=== PATIENT | male | born 1955 | race Caucasian/White ===

== ENCOUNTER 2020-04-24 08:19 | Outpatient (CLI) | payer MEDICARE, OTHER ==
[~2020-04-24] VITALS: Ht 182.9 cm; Wt 83.5 kg
[2020-04-24] VITALS (15 sets, daily range): BP systolic 95–113; BP diastolic 59–68
[2020-04-24 08:36] LABS: BASO # 0.1 x10^3/uL (0.0-0.2); BASO % 1 % (0-3); EOS # 0.1 x10^3/uL (0.0-0.7); EOS % 1 % (0-3); HEMATOCRIT 38.5 % (39.0-53.0); HEMOGLOBIN 13.2 g/dL (13.0-17.5); LYMPH # 0.7 x10^3/uL (1.0-4.8); LYMPH % 6 % (24-48); MEAN CORPUSCULAR HEMOGLOBIN 30 pg (25-35); MEAN CORPUSCULAR HGB CONC 34 g/dL (31-37); MEAN CORPUSCULAR VOLUME 87 fL (79-100); MONO # 0.7 x10^3/uL (0.0-1.1); MONO % 6 % (0-9); NEUT # 9.8 x10^3/uL (1.8-7.7); NEUT % 86 % (31-73); PLATELET COUNT 204 x10^3/uL (140-400); RED BLOOD COUNT 4.42 x10^6/uL (4.30-5.70); RED CELL DISTRIBUTION WIDTH 14.1 % (11.5-14.5); WHITE BLOOD COUNT 11.4 x10^3/uL (4.0-11.0)
[2020-04-24] MEDS ORDERED: ATEN25TA PO (08:41)
[2020-04-24] MEDS ORDERED: BUDE10.22 IH (08:41)
[2020-04-24] MEDS ORDERED: ASPI-630 PO (08:41)
[2020-04-24] MEDS ORDERED: SERT100T PO (08:41)
[2020-04-24] MEDS ORDERED: ATOR40TA PO (08:41)
[2020-04-24] MEDS ORDERED: TIOT18CA IH (08:41)
[2020-04-24] MEDS ORDERED: METF100010 PO (08:41)
[2020-04-24] MEDS ORDERED: TRIA1CAP3 PO (08:41)
[2020-04-24] MEDS ORDERED: ALBU2.5V14 NEB (08:41)
[2020-04-24] MEDS ORDERED: LEVO112T49 PO (08:41)
[2020-04-24] MEDS ORDERED: OMEP20CA16 PO (08:41)
[2020-04-24 08:49] LABS: PROTHROMBIN TIME PATIENT 13.4 SEC (11.7-14.0)
[2020-04-24 08:51] LABS: CALCIUM 8.9 mg/dL (8.5-10.1); CREATININE 1.1 mg/dL (0.7-1.3); POTASSIUM 4.7 mmol/L (3.5-5.1)
[2020-04-24] MEDS ORDERED: LIDOCAINE WITH 8.4% SOD BICARB 3 ML DISP.SYRIN. ONE (09:22)
[2020-04-24] MEDS ORDERED: fentaNYL PF VIAL 100 MCG/2 ML VIAL ONE (09:24)
[2020-04-24] MEDS ORDERED: MIDAZOLAM HCL/PF 2 MG/2 ML VIAL. ONE (09:24)
[2020-04-24] MEDS ORDERED: fentaNYL PF VIAL 100 MCG/2 ML VIAL IV ONE (09:30)
[2020-04-24] MEDS ORDERED: MIDAZOLAM HCL/PF 2 MG/2 ML VIAL. IV ONE (09:30)
[2020-04-24] MEDS ORDERED: LIDOCAINE WITH 8.4% SOD BICARB 3 ML DISP.SYRIN. IJ ONE (09:30)
--- NOTE | 2020-04-24 10:18 | PDOC ---
MODERATE SEDATION ASSESSMENT RISKS/ALTERNATIVES Risks/Alternatives Risks and alternatives of this type of sedation and procedure discussed with: RISK/ALTERNATIVES: Patient H & P ON CHART H & P H & P on chart and reviewed for co-morbid conditions and appropriate labs. H&P ON CHART: Yes STATUS PREG STATUS ASSESSED: Yes MEDS/ALLERGIES REVIEWED Meds/Allergies Reviewed Medications and Allergies including time and route of recently administered narcotics and sedatives. MEDS/ALLERGIES REVIEWED: Yes ASA RATING ASA RATING: II AIRWAY ASSESSMENT Airway Assessment Airway patency, oral function limitations, presence of caps, crowns, dentures, partials, and ability to extend neck assessed. AIRWAY ASSESSMENT: Yes MALLAMPATI SCORE MALLAMPATI SCORE: II PRE-SEDATION ASSESSMENT PRE-SEDATION ASSESSMENT: Yes ANISA CHRISTOPHER MD Apr 24, 2020 10:18
--- NOTE | 2020-04-24 10:20 | PDOC ---
BRIEF OPERATIVE NOTE Pre-Op Diagnosis left lung nodule Post-Op Diagnosis same Procedure Performed CT lung biopsy Surgeon Philippe Anesthesia Type: Conscious Sedation Specimens Obtained 6 x 20g cores Findings CT left lung biopsy Complications No immediate ANISA CHRISTOPHER MD Apr 24, 2020 10:20
[2020-04-24 10:47] LABS: % BANDS 3 % (0-9); % BASOS 1 % (0-3); % LYMPHS 3 % (24-48); % MONOS 3 % (0-10); % SEGS 90 % (35-66); ANISOCYTOSIS SLIGHT; PLT ESTIMATE ADEQUATE (ADEQUATE)
--- NOTE | 2020-04-24 12:12 | RAD ---
Procedure: CT-guided left lung biopsy Clinical Indication: Adult male with cavitary left perihilar lesion and a couple of solid satellite left upper lobe lung nodules. Sedation: Conscious sedation was administered with a total intraprocedural [id number] time of 20 minutes. The patient was monitored by a qualified independent observer throughout the time of sedation. Please refer to the medical record for exact doses of medications utilized to achieve moderate sedation. Antibiotics: None Sterility: All elements of maximal sterile barrier technique including the use of a cap, mask, sterile gown, sterile gloves, large sterile sheet, appropriate hand hygiene, and 2% chlorhexidine for cutaneous antisepsis (or acceptable alternative antiseptic per current guidelines) were followed for this procedure. Consent: The procedure was explained in its entirety to the patient or the patients designated senior human resources representative by a member of the treatment team, including a discussion of the risks, benefits and commonly accepted alternatives to the procedure, as well as the expected consequences of no therapy whatsoever. Discussion of the risks included, but was not limited to, those that are most frequent and those that are rare but possibly severe or life-threatening, as well as the possibility of unforeseen complications. Technique and Findings: Following informed consent, the patient was prepped and draped in usual sterile fashion. Preliminary CT scan of the area of interest was performed. 1% lidocaine was used to achieve local anesthesia. A small dermatotomy was made. Under periodic CT surveillance, a 19-gauge needle guide was advanced towards a small cluster of 2 solid satellite lesions in the left upper lobe. Once in position, 6 separate 20-gauge core biopsy specimens were obtained and divided between formalin and nonbacteriostatic normal saline for microbiologic analysis. A blood patch was applied as the needle guide was removed and hemostasis was achieved with manual compression. Complications: No immediate Impression: 1. CT-guided left upper lobe lung biopsy as described. PQRS Compliance Statement: One or more of the following individualized dose reduction techniques were utilized for this examination: 1. Automated exposure control 2. Adjustment of the mA and/or kV according to patient size 3. Use of iterative reconstruction technique
--- NOTE | 2020-04-24 13:03 | NUR ---
Discharge Note: TORIE PATEL Discharge instructions and discharge home medications reviewed with Patient and a copy given. All questions have been answered and understanding verbalized. The following instructions and handouts were given: MODERATE SEDATION AND LUNG BIOPSY. Discontinued lines and drains: SKIN intact. Patient discharged to HOME with HIS SPOUSE via PRIVATE VEHICLE.
--- NOTE | 2020-04-24 14:48 | RAD ---
Inspiration expiration chest radiographs without comparison for status post left lung biopsy. FINDINGS: Left apical opacity is present and may reflect focal hemorrhage. There is no pneumothorax. No pleural effusion. Right lung is well aerated. Heart size within normal limits. IMPRESSION: 1. No pneumothorax or pleural effusion status post lung biopsy. 2. Vague opacity in the left upper lung likely represent small focal parenchymal hemorrhage. Electronically signed by: Patrick Paez MD (04/24/2020 2:45 PM) [id number]
--- NOTE | 2020-04-25 16:06 | PATHOLOGY ---
[facility] Accession Number: [id number] . 01 Material submitted: . lung - LEFT UPPER LUNG MASS CORE BIOPSY. Modifiers: left, upper . 01 Clinical history: . LEFT LUNG MASS . 02 Diagnosis: Lung tissue, left upper lung mass core biopsy: - SQUAMOUS CELL CARCINOMA, MODERATELY TO POORLY DIFFERENTIATED. SEE COMMENT. (JPM:henok; 04/25/2020) S 04/25/2020 1047 Local . 02 Comment: Sections of the left upper lung mass needle biopsy show extensive replacement of lung parenchyma by a malignant epithelial neoplasm. The tumor cells are present in irregular solid nests within a focally inflamed reactive desmoplastic stroma. The tumor cells have a polygonal squamoid appearance, and have ample amounts of eosinophilic cytoplasm with well demarcated cell borders. There are tumor cells present having densely eosinophilic keratinized cytoplasm. The tumor cells possess enlarged, moderately to markedly pleomorphic hyperchromatic nuclei. There is focal tumor necrosis. Typical and atypical mitotic figures are present. The morphologic findings are supportive of the diagnosis of a moderately to poorly differentiated squamous cell carcinoma. The case is also examined by Dr. Mcneil, who concurs with the diagnosis. The results are reported to Dr. Carrillo on 04/25/2020 at 2:05 PM. (JPM:[email or web address] 04/25/2020) . 02 Electronically signed: . Merritt Parr MD, Pathologist NPI- [id number] . 01 Gross description: . The specimen is received in formalin, labeled "Eric Super, left lung biopsy". The specimen is additionally labeled on the requisition as, "left upper lung mass". Received are multiple core-like segments of friable pale brunner skin measuring 0.5 x 0.3 x 0.1 cm in aggregate dimensions. The specimen is filtered and entirely submitted in cassette A1. (CAA; 04/24/2020) QAC/QAC 04/24/2020 1824 Local . 02 Pathologist provided ICD-10: C34.92 . 02 CPT . 654275 Specimen Comment: A courtesy copy of this report has been sent to [phone] Specimen Comment: Report sent to Performed at: 01 [facility] [address] [place] [address] [address], [place] [id number] MD Travis Mattson MD Phone: [phone] Performed at: [address] [facility] [address] [place], [place] [id number] MD Merritt Parr MD Phone: [phone]
== END 2020-04-24 12:50 | disposition home or self-care (01) ==
LOC: INTRAD 08:19
PROVIDERS: ATTEND Internal Medicine Critical Care Medicine
DX: C34.92 Malignant neoplasm of unspecified part of left bronchus or lung (principal); Z87.891 Personal history of nicotine dependence; Z79.82 Long term (current) use of aspirin; Z79.899 Other long term (current) drug therapy
CPT/HCPCS: 32405; 36415; 71046; 77012; 80048; 85007; 85025; 85610; 87071; 87075; 87102; 87116; 99152; J2250; J3010; J3490; 88305

== ENCOUNTER → 2020-04-27 | Outpatient (CLI) | payer MEDICARE, OTHER ==
[2020-04-24 12:30] VITALS: BP 107/64
[~2020-04-27] MED LIST: ALBU2.5V14 NEB; ASPI-630 PO; ATEN25TA PO; ATOR40TA PO; BUDE10.22 IH; LEVO112T49 PO; METF100010 PO; OMEP20CA16 PO; SERT100T PO; TIOT18CA IH; TRIA1CAP3 PO
--- NOTE | 2020-04-27 18:27 | RAD ---
EXAMINATION: PET W CT SKULL TO MIDTHIGH HISTORY: Lung cancer staging COMPARISON/CORRELATION: 04/24/[address] images FINDINGS: Net dose 14.42 mCi F-18 FDG was administered intravenously for purposes of PET/CT exam. Blood glucose level at the time of radiotracer administration was 187 mg/dL. Imaging was performed from the skull base to the proximal thighs. Hepatic reference uptake is SUV max of 2.8 . Uptake of radiotracer involving visualized head and neck is unremarkable. There is mild uptake involving the right true vocal cord but no suspicious corresponding CT finding. This is presumed to be physiologic. Uptake involving the patient's known left hilar to suprahilar level mass is identified with SUV max of 5.6. This cavitary mass encases the left upper lobe bronchus. Encasement of lingular bronchus also suspected with partial lingular atelectasis. There is a nodule involving the left upper lung with SUV max of 5.3. This nodule measures up to 1.5 cm diameter. Smaller adjacent nodule along the anteroinferior margin is present without definite uptake. Interstitial thickening of the left upper lung in this region extending to the left hilum is noted. Mild diffuse centrilobular emphysema is present. No abnormal uptake definitely seen involving the superior mediastinal lymph nodes which are not enlarged. There is no abnormal uptake identified within the abdomen or pelvis. Diverticulosis is seen. Fatty infiltration of the liver noted. No radiopaque collecting system calculi. Prostate gland is mildly enlarged. No definite abnormal uptake involving bony structures. Uptake involving left sacroiliac joint probably relates to degenerative change. IMPRESSION: Uptake corresponding to patient's known left hilar to suprahilar level mass compatible with active neoplastic involvement. Left upper lobe nodules also present with intense uptake of concern for intrapulmonary metastatic involvement. No abnormal uptake involving the abdomen or pelvis. PQRS Compliance Statement: One or more of the following individualized dose reduction techniques were utilized for this examination: 1. Automated exposure control 2. Adjustment of the mA and/or kV according to patient size 3. Use of iterative reconstruction technique Electronically signed by: Hunter Nguyễn MD (04/27/2020 6:24 PM) [id number]
== END | disposition home or self-care (01) ==
LOC: PETSC 08:00
PROVIDERS: ATTEND Internal Medicine Critical Care Medicine
DX: C80.1 Malignant (primary) neoplasm, unspecified (principal); R91.8 Other nonspecific abnormal finding of lung field; J98.11 Atelectasis; K57.30 Diverticulosis of large intestine without perforation or abscess without bleeding; J43.2 Centrilobular emphysema; K76.0 Fatty (change of) liver, not elsewhere classified; N40.0 Benign prostatic hyperplasia without lower urinary tract symptoms; M46.1 Sacroiliitis, not elsewhere classified
CPT/HCPCS: 78815; A9552